=== PATIENT | female | born 1965 | race Caucasian/White ===

== ENCOUNTER 2017-11-05 13:15 | Emergency (ER) | payer SELFPAY ==
[~2017-11-05] VITALS: Ht 157.5 cm; Wt 93.0 kg
[2017-11-05 13:29] VITALS: BP 126/77
--- NOTE | 2017-11-05 13:49 | NUR ---
PATIENT PRESENTS TO ED WITH C/O RIGHT THUMB PAIN APPROXIMATELY 45 MINS AGO; DX WITH TENDONITIS IN RIGHT ARM A COUPLE OF MONTHS AGO;PT WAS BUTTONING HER PANTS AND HER RIGHT THUMB CRAMPED IN PAIN;DENIES ANY NUMBNESS/TINGLING SENSATION ON RT ARM;RT THUMB SLIGHTLY SWOLLEN;DENIES N/V/D; SKIN IS PINK/WARM/DRY; AAOX4 WITH EVEN AND STEADY GAIT; LUNGS CLEAR BL; HR EVEN AND REGULAR; PT DENIES ANY FEVER, CP, SOB, OR COUGH AT THIS TIME; PATIENT STATES PAIN OF 7/10 AT THIS TIME;PATIENT POSITIONED FOR COMFORT; HOB ELEVATED; BEDRAILS UP X2; BED DOWN. ER MD MADE AWARE OF PT STATUS.
[2017-11-05 14:36] VITALS: BP 120/69
== END 2017-11-05 14:35 | disposition home or self-care (01) ==
LOC: MED 13:15
DX: M65.4 Radial styloid tenosynovitis [de Quervain] (principal)
CPT/HCPCS: 73140; 99284